=== PATIENT | female | born 1955 | race African-American/Black ===

== ENCOUNTER 2017-09-15 14:51 | Emergency (ER) | payer OTHER ==
[2017-09-15 15:02] VITALS: BP 151/113; PULSE 76; TEMP 97.3; BMI 33.6
--- NOTE | 2017-09-15 15:04 | PDOC ---
Rapid Medical Evaluation Time Seen by Provider: 09/15/17 14:55 Medical Evaluation: 09/15/17 14:56 I have performed a brief in-person evaluation of this patient. This patient presents with a chief complaint of: chronic knee and back pain, worse in past 2 days states ran out of her tylenol #3 last week. States usually treated in [place] at pain management for arthritis in both knees and lower back. Denies new injury or fall Pertinent physical exam findings: NAD lungs clear bilaterally heart s1s2 bilateral knees unable to completely flex, tender on medial sides of knees + tenderness in lumbar area I have ordered the following: analgesia ordered The patient will proceed to the ED for further evaluation.
[2017-09-15] MEDS ORDERED: KETOROLAC TROMETHAMINE 30 MG/1 ML VIAL IM ONE (15:08)
--- NOTE | 2017-09-15 16:32 | PDOC ---
History of Present Illness - General Chief Complaint: Pain Stated Complaint: PAIN/ LEGS, BACK Time Seen by Provider: 09/15/17 14:55 History Source: Patient Exam Limitations: No Limitations - History of Present Illness Initial Comments: 09/15/17 16:29 CHIEF COMPLAINT: Chronic bilateral knee pain. HISTORY OF PRESENT ILLNESS: Patient is a 62-year-old female, history of chronic pain to bilateral needs, osteoarthritis receives cortisone and hyaluronic acid injections to knees every 6 months. Patient received injections in [place] where she recently moved from. Has not been able to establish physicians in the area. Patient was supposed to receive her injections tomorrow. Has also run out of her chronic pain medication, Tylenol with codeine. Patient has history of cirrhosis hypertension and high cholesterol. REVIEW OF SYSTEMS: GENERAL: Afebrile, A&O x3 RESPIRATORY: No cough, wheezing, or hemoptysis. CARDIAC: No CP or SOB MUSCULOSKELETAL: Pain to bilateral knees SKIN : No erythema, no edema, no bruising, no deformity. NEUROLOGICAL: Denies any numbness or tingling. PHYSICAL EXAM: GENERAL: The patient is awake, alert, and fully oriented, in no acute distress. HEAD: Normal with no signs of trauma. RESPIRATORY: Lungs clear bilaterally no rhonchi, rales, or wheezes CARDIAC: S1-S2 audible, no murmur rub or gallop EXTREMITIES: Pain to bilateral knees with bowing, bilateral arthritic knees [no ] fluid appreciated, no bulge sign. No pain to superior or inferior patella. Negative drop test. Negative posterior leg test. No joint laxity noted, no ecchymosis, no deformity, no abrasions ,no edema. +3 popliteal pulse. Negative Homans sign. No calf pain or tenderness, no erythema or edema. MUSCULOSKELETAL: No spinal point tenderness. SKIN: Warm, Dry, normal turgor, no erythema, +edema no bruising. 09/15/17 17:30 Past History - Past Medical History Allergies/Adverse Reactions: Allergies Allergy/AdvReac Type Severity Reaction Status Date / Time No Known Allergies Allergy Verified 09/15/17 14:56 Home Medications: Ambulatory Orders Tramadol HCl 50 mg PO TID #15 tablet MDD 3 09/15/17 Cardiac Disorders: Yes ("SLOW HEART BEAT") COPD: No HTN: Yes Liver Disease: Yes (CIRRHOSIS) - Surgical History Appendectomy: Yes - Suicide/Smoking/Psychosocial Hx Smoking History: Former smoker Have you smoked in the past 12 months: No Information on smoking cessation initiated: No *Physical Exam - Vital Signs Last Vital Signs Temp Pulse Resp BP Pulse Ox 97.3 F L 76 18 151/113 99 09/15/17 14:56 09/15/17 14:56 09/15/17 14:56 09/15/17 14:56 09/15/17 14:56 Medical Decision Making - Medical Decision Making 09/15/17 17:32 A/P: Patient with chronic pain to bilateral knees. I will give patient prescription for tramadol, I have given her names for orthopedist in the area where she can follow-up. Patient's blood pressure is elevated she is aware is following up with Dr. Kimber Bravo. She denies any chest pain or shortness of breath. She is taking her blood pressure medication however forgot her dose this morning, will take it now. Patient is ambulating with steady gait. Patient discharged home with strict follow-up instructions tomorrow. 09/15/17 17:34 *DC/Admit/Observation/Transfer Diagnosis at time of Disposition: Hypertension Chronic knee pain Qualifiers: Laterality: bilateral Qualified Code(s): M25.561 - Pain in right knee - Discharge Dispostion Disposition: HOME Condition at time of disposition: Stable Admit: No - Prescriptions Prescriptions: Tramadol HCl 50 mg PO TID #15 tablet MDD 3 - Referrals Referrals: Kimber Bravo MD [Primary Care Provider] - Obie Phipps MD [Staff Physician] - Angelo Jauregui MD [Staff Physician] - - Patient Instructions Printed Discharge Instructions: DI for Knee Pain Additional Instructions: Please follow-up with orthopedics as soon as possible - Post Discharge Activity
[2017-09-15] MEDS ORDERED: traMADol HCL 50 MG TABLET PO ONE (16:38)
[2017-09-15] MEDS ORDERED: traMADol HCL 50 MG TABLET ONE (17:11)
== END 2017-09-15 17:14 | disposition home or self-care (01) ==
LOC: JERFT 14:51
DX: I10 Essential (primary) hypertension (principal); M13.862 Other specified arthritis, left knee; M13.861 Other specified arthritis, right knee; K74.60 Unspecified cirrhosis of liver
CPT/HCPCS: 99281-25

== ENCOUNTER 2018-07-13 08:49 | Emergency (ER) | payer OTHER ==
[2018-07-13 08:59] VITALS: TEMP 98.4; BMI 30.2
--- NOTE | 2018-07-13 09:59 | PDOC ---
History of Present Illness - General Chief Complaint: Vomiting/Diarrhea Stated Complaint: VOMITING Time Seen by Provider: 07/13/18 09:31 History Source: Patient Exam Limitations: No Limitations - History of Present Illness Initial Comments: 07/13/18 09:50 Patient is a 63 year old female with a PMHx of osteoarthritis of the knee and HTN who presents her from a senior citizen home for complaints of a two day history of cough with no phlegm, rhinorrhea, and sinus congestion. Patient states the cough worsened last night causing her to have lack of sleep, which promoted this hospital visit. Patient also reports a two day history of diarrhea that initially started off as loose but now nonbloody watery diarrhea associated with urinary frequency. Otherwise, patient denies any chest pain, palpitations, shortness of breath, abdominal pain, dysuria, hematuria, melena, hematochezia, hematemesis, hemoptysis. Patient denies getting her flu shot this season. Patient reports living in a correction facility with sick people around. PMHx: HTN Osteoarthritis of the knee PSHx: Appendectomy Tonsillectomy Social Hx: Denies alcohol use Denies drug use Denies smoking Past History - Past Medical History Allergies/Adverse Reactions: Allergies Allergy/AdvReac Type Severity Reaction Status Date / Time No Known Allergies Allergy Verified 07/13/18 08:57 Home Medications: Ambulatory Orders Acetaminophen with Codeine [Tylenol with Codeine #3 Tablet] 1 each PO Q6H PRN Carvedilol [Coreg -] 3.125 mg PO BID 07/13/18 Guaifenesin AC [Robitussin AC] 5 ml PO Q6H PRN #60 ml MDD 20 mL 07/13/18 Losartan Potassium [Cozaar] 100 mg PO DAILY 07/13/18 Cardiac Disorders: Yes ("SLOW HEART BEAT") COPD: No HTN: Yes Liver Disease: Yes (CIRRHOSIS) - Surgical History Appendectomy: Yes - Suicide/Smoking/Psychosocial Hx Smoking History: Never smoked Have you smoked in the past 12 months: No Review of Systems - Review of Systems Constitutional: No: Chills, Diaphoresis, Fever, Night Sweats, Weakness HEENTM: Yes: Nose Congestion. No: Double Vision, Tinnitus, Throat Pain, Throat Swelling, Mouth Pain Respiratory: Yes: Cough. No: Orthopnea, Shortness of Breath, SOB with Exertion , SOB at Rest, Stridor, Wheezing, Productive cough, Hemoptysis Cardiac (ROS): No: Chest Pain, Edema, Irregular Heart Rate, Lightheadedness, Palpitations, Syncope, Chest Tightness ABD/GI: Yes: Diarrhea. No: Abdominal Distended, Abd. Pain w/ defecation, Constipated, Nausea, Vomiting, Abdominal cramping : Yes: Frequency. No: Burning, Dysuria, Discharge, Flank Pain, Hematuria, Incontinence, Pain, Urgency Musculoskeletal: No: Back Pain, Muscle Weakness Integumentary: No: Bruising, Erythema Neurological: No: Headache, Numbness, Paresthesia, Tingling, Tremors *Physical Exam - Vital Signs Last Vital Signs Temp Pulse Resp BP Pulse Ox 98.4 F 71 18 191/91 H 96 07/13/18 08:54 07/13/18 08:54 07/13/18 08:54 07/13/18 08:54 07/13/18 08:54 - Physical Exam General Appearance: Yes: Other (Awake, alert, oriented x3, no acute distress ) HEENT: positive: EOMI, MICHELLE, Normal ENT Inspection, TMs Normal, Pharynx Normal, Nasal Congestion, Rhinorrhea, Sinus Tenderness. negative: Tonsillar Exudate, Tonsillar Erythema, TM Bulging, TM Dull, Thrush Neck: positive: Supple. negative: Tender, Trachea midline, Normal Thyroid, Rigid, Carotid bruit, Decreased range of motion, Lymphadenopathy (R), Lymphadenopathy (L) Respiratory/Chest: positive: Lungs Clear, Normal Breath Sounds. negative: Chest Tender, Respiratory Distress, Accessory Muscle Use, Rales, Rhonchi, Wheezing Cardiovascular: positive: Regular Rhythm, Regular Rate, S1, S2. negative: Edema , JVD Gastrointestinal/Abdominal: positive: Other (Soft, obese, protruded abdomen with no tenderness. Normoactive bowel sounds, no rebound tenderness or guarding ) Musculoskeletal: positive: Normal Inspection. negative: CVA Tenderness, CVA Tenderness (R), CVA Tenderness (L), Decreased Range of Motion Extremity: positive: Normal Capillary Refill, Normal Inspection, Normal Range of Motion (limited ROM of bilateral LE due to chronic knee pain ) Integumentary: positive: Normal Color, Dry, Warm. negative: Erythema, Ecchymosis, Bruising Neurologic: positive: resident physician II-XII NML intact, Fully Oriented, Alert, Normal Mood/ Affect, Normal Response, Motor Strength 5/5 Moderate Sedation - Procedure Monitoring Vital Signs: Procedure Monitoring Vital Signs Temperature 98.4 F 07/13/18 08:54 Pulse Rate 71 07/13/18 08:54 Respiratory Rate 18 07/13/18 08:54 Blood Pressure 191/91 H 07/13/18 08:54 O2 Sat by Pulse Oximetry (%) 96 07/13/18 08:54 ED Treatment Course - LABORATORY CBC & Chemistry Diagram: 07/13/18 10:35 07/13/18 10:35 - RADIOLOGY Radiology Studies Ordered: Category Date Time Status CHEST X-RAY PORTABLE* [RAD] Stat Radiology 07/13/18 09:47 Ordered Medical Decision Making - Medical Decision Making 07/13/18 10:33 Patient is a 63 year old female who presents today for worsening cough associated with sinus congestion and diarrhea. DDx includes, but not limited to , Bronchitis, PNA, Influenza. -CBC, CMP -U/A and culture -EKG and CXR -Influenza swab 07/13/18 11:07 -Patient flu A positive. Will give Tamiflu -Rest of labs pending 07/13/18 12:47 -Labs showed elevated LFT's but has Cirrhosis -Will discharge patient with Robitussin AC *DC/Admit/Observation/Transfer Diagnosis at time of Disposition: Influenza A - Discharge Dispostion Disposition: HOME Condition at time of disposition: Stable Decision to Admit order: No - Prescriptions Prescriptions: Guaifenesin AC [Robitussin AC] 5 ml PO Q6H PRN #60 ml MDD 20 mL PRN Reason: Cough - Referrals Referrals: Kimber Bravo MD [Primary Care Provider] - - Patient Instructions Printed Discharge Instructions: Influenza Additional Instructions: -You were seen here for cold-likely symptoms and found to be flu positive. -You will stay hydrated with lot's of fluids -We will send ya prescription of Robitussin AC to your pharmacy. Please do not take this medication with your Tylenol 3 medication as it may cause severe drowsiness and dizziness. -Please practice good hand hygiene and avoid contact with others and do not leave the house until your symptoms improve -If symptoms persist or worsen, return to the emergency department. - Post Discharge Activity
[2018-07-13] MEDS ORDERED: ACETAMINOPHEN WITH CODEINE 300MG/30MG TABLET PO ONE ×2 (10:07→12:46)
[2018-07-13] MEDS ORDERED: ACETAMINOPHEN WITH CODEINE 300MG/30MG TABLET ONE ×2 (10:22→14:02)
[2018-07-13] MEDS ORDERED: CARVEDILOL 3.125 MG TABLET (FP) PO ONE (11:13)
[2018-07-13] MEDS ORDERED: LOSARTAN POTASSIUM 50 MG TABLET (FP) PO ONE (11:13)
[2018-07-13] MEDS ORDERED: SODIUM CHLORIDE 1,000 ML IV STA (11:13)
[2018-07-13 11:15] LABS: URINE APPEARANCE CLEAR; URINE BILIRUBIN NEGATIVE (<2.0 mg/dL); URINE COLOR YELLOW; URINE GLUCOSE (UA) NEGATIVE (NEGATIVE); URINE KETONE NEGATIVE (NEGATIVE); URINE LEUK ESTERASE NEGATIVE (NEGATIVE); URINE NITRITE NEGATIVE (NEGATIVE); URINE PROTEIN 1+ (NEGATIVE); URINE UROBILINOGEN 4.0 E.U/dl mg/dL (0.2-1.0)
[2018-07-13 11:19] LABS: ALBUMIN 3.2 g/dl (3.4-5.0); ALK PHOS 248 U/L (45-117); ANION GAP 5 MMOL/L (8-16); BILIRUBIN,TOTAL 1.5 mg/dL (0.2-1); BLOOD UREA NITROGEN 12 mg/dL (7-18); CALCIUM 8.3 mg/dL (8.5-10.1); CHLORIDE 105 mmol/L (98-107); CO2 28 mmol/L (21-32); CREATININE 0.8 mg/dL (0.55-1.3); GLUCOSE,RANDOM 90 mg/dL (74-106); POTASSIUM 4.7 mmol/L (3.5-5.1); SGOT/AST 123 U/L (15-37); SGPT/ALT 42 U/L (13-61); SODIUM 139 mmol/L (136-145); TOT PROT 7.2 g/dl (6.4-8.2)
[2018-07-13] MEDS ORDERED: guaiFENesin/CODEINE 10 ML UNIT-DOSE CUPS PO ONE (11:29)
[2018-07-13 11:38] LABS: EPI CELLS RARE /HPF (FEW); URINE MUCUS RARE
[2018-07-13] MEDS ORDERED: CARVEDILOL 3.125 MG TABLET (FP) ONE (11:58)
[2018-07-13] MEDS ORDERED: guaiFENesin/CODEINE 5 ML UNIT-DOSE CUPS PO ONE (12:16)
--- NOTE | 2018-07-13 14:18 | PDOC ---
Attending Attestation - HPI HPI: 07/13/18 14:22 The patient is a 63 year old female with a PMHx of osteoarthritis of the knee and HTN presenting with nonproductive cough, runny nose, sinus congestion with pressure, one episode of NB, NB vomit, loose diarrhea, and urinary frequency for the past two days. Patient reports her symptoms worsened last night prompting her to come to the ER for an evaluation. Patient did not receive her flu shot. Admits to positive sick contact. Denies recent antibiotic use. Patient admits to having bronchitis in the past, which required hospital admission. The patient denies chest pain, shortness of breath, headache and dizziness. Denies fever, chills, nausea, and constipation. Denies dysuria, urgency and hematuria. Allergies: NKA PSHx: Appendectomy, Tonsillectomy Social history: No reported alcohol, drug or cigarette use. <Lauren Gunn - Last Filed: 07/13/18 14:22> - Resident Resident Name: Ngozi Urbano - ED Attending Attestation I have performed the following: I have examined & evaluated the patient, The case was reviewed & discussed with the resident, I agree w/resident's findings & plan, Exceptions are as noted - Physicial Exam PE: GENERAL: Awake, alert, and fully oriented, in no acute distress HEAD: No signs of trauma. +Maxillary and frontal sinus tenderness. EYES: PERRLA, EOMI, sclera anicteric, conjunctiva clear ENT: Auricles normal inspection, hearing grossly normal, nares patent, oropharynx clear without exudates. Moist mucosa NECK: Normal ROM, supple, no lymphadenopathy, JVD, or masses LUNGS: Breath sounds equal, clear to auscultation bilaterally. No wheezes, and no crackles. Intermittent dry cough. HEART: Regular rate and rhythm, normal S1 and S2, no murmurs, rubs or gallops ABDOMEN: Soft, nontender, normoactive bowel sounds. No guarding, no rebound. No masses EXTREMITIES: Normal range of motion, no edema. No clubbing or cyanosis. No cords, erythema, or tenderness NEUROLOGICAL: Cranial nerves II through XII grossly intact. Normal speech. Motor and sensation intact SKIN: Warm, Dry, normal turgor, no rashes or lesions noted. - Medical Decision Making Patient positive for flu. Symptom treatment. Will not give tamiflu based on very small benefit vs side effect profile. <Karli Guaman - Last Filed: 07/13/18 17:07>
[2018-07-13 14:57] VITALS: BP 175/88; PULSE 75
[2018-07-13] MEDS ORDERED: guaiFENesin 200 MG/10 ML 10 ML UNIT-DOSE CUPS PO ONE (15:46)
[2018-07-13] MEDS ORDERED: guaiFENesin 200 MG/10 ML 10 ML UNIT-DOSE CUPS ONE (15:47)
== END 2018-07-13 17:00 | disposition home or self-care (01) ==
LOC: JER 08:49
DX: J09.X2 Influenza due to identified novel influenza A virus with other respiratory manifestations (principal); K74.60 Unspecified cirrhosis of liver; M19.90 Unspecified osteoarthritis, unspecified site
CPT/HCPCS: 36415; 71045-TC-FY; 80053; 81003; 81015; 87086; 87804; 99282-25